=== PATIENT | female | born 1995 | race Caucasian/White ===

== ENCOUNTER → 2018-12-09 | Outpatient (CLI) | payer OTHER ==
--- NOTE | 2018-12-09 11:24 | US ---
EXAMINATION TYPE: US abdomen complete DATE OF EXAM: 12/09/2018 COMPARISON: NONE CLINICAL HISTORY: R01.9 abdominal pain; RUQ, LUQ and umbilical pain, intermittently x 3 months, nause a and vomiting especially in AM EXAM MEASUREMENTS: Liver Length: 15.3 cm Gallbladder Wall: 0.1 cm CBD: 0.4 cm Spleen: 11.6 cm Right Kidney: 11.1 x 5.8 x 4.1 cm Left Kidney: 11.2 x 5.9 x 4.6 cm Pancreas: wnl Liver: wnl Gallbladder: wnl Evidence for sonographic Meraz's sign: no CBD: wnl Spleen: wnl Right Kidney: wnl Left Kidney: wnl Upper IVC: wnl Abd Aorta: wnl There is no ascites. The liver is homogenous. The intrahepatic portion of the IVC and proximal abdominal aorta are within normal limits. There is no evidence of cholelithiasis. Common bile duct is unremarkable. The visu alized portions of the pancreas are homogenous. The spleen is unremarkable. Kidneys are symmetric a nd free of hydronephrosis, normal cortical medullary differentiation. No renal lesions are seen. IMPRESSION: No significant abnormalities evident
--- NOTE | 2018-12-09 11:26 | US ---
EXAMINATION TYPE: US pelvic complete plus Doppler DATE OF EXAM: 12/09/2018 COMPARISON: NONE CLINICAL HISTORY: 23-year-old female R01.9 abdominal pain. Intervention abdominal and pelvic pain x 3 months, nausea in AM TECHNIQUE: Transabdominal sonographic images of the pelvis were acquired. Color Doppler and spectral waveform analysis of the ovarian arteries and veins. Date of LMP: 11/08/2018 FINDINGS: EXAM MEASUREMENTS: Uterus: 8.5 x 5.7 x 3.4 cm Endometrial Stripe: 0.9 cm Right Ovary: 2.2 x 1.9 x 1.5 cm Left Ovary: 4.5 x 3.7 x 2.4 cm for a volume of 20.5 mL, upper limits of normal 1. Uterus: Anteverted 2. Endometrium: Arcuate configuration to the endometrium. Normal thickness. 3. Right Ovary: small follicles seen 4. Left Ovary: small follicles seen with largest = 1.2 x 1.0 x 0.8cm Spectral, color and waveform Doppler imaging shows good arterial and venous flow within the ovaries ; there is no evidence for ovarian torsion. 5. Bilateral Adnexa: wnl 6. Posterior cul-de-sac: small amount of free fluid is seen in cul de sac = 2.2 x 1.7 x 1.0cm IMPRESSION: 1. Prominent follicular change in the left ovary. No sonographic evidence for ovarian torsion on eith er side. 2. Incidental arcuate configuration to the uterus. 3. Small amount of cul-de-sac free fluid likely physiologic.
== END ==
LOC: RADUSWWP 10:20
PROVIDERS: ATTEND Internal Medicine
DX: R10.9 Unspecified abdominal pain (principal)
CPT/HCPCS: 76700; 76856

== ENCOUNTER → 2020-08-29 | Outpatient (CLI) | payer OTHER ==
--- NOTE | 2020-08-29 12:19 | MR ---
EXAMINATION TYPE: MR knee LT wo con DATE OF EXAM: 08/29/2020 COMPARISON: Left knee x-ray July 28, 2020 HISTORY: LT knee pain per order. Pain with locking and initial swelling after injury July 11. TECHNIQUE: Multiplanar, multisequence imaging of the left knee is performed without IV contrast. FINDINGS: MEDIAL MENISCUS: Faint oblique signal posterior horn does not definitively extend to articular surfa ce. LATERAL MENISCUS: Horizontal increased signal is present, appears to have to some vertical irregular extension to articular surface involving the anterior horn sagittal image 9 and coronal image 17. CRUCIATE LIGAMENTS: The anterior and posterior cruciate ligaments are intact and unremarkable. COLLATERAL LIGAMENTS: The medial collateral ligament and lateral collateral ligament complex are inta ct and unremarkable. EXTENSOR MECHANISM: Visualized quadriceps and patellar tendons are intact. EFFUSION: Small to tiny suprapatellar joint effusion. POPLITEAL CYST: No popliteal/berman cyst. TRICOMPARTMENT SPACES: Tricompartment joint space is maintained. No significant spurring. CARTILAGE: Tricompartment articular cartilage is preserved. BONE MARROW SIGNAL: No focal abnormal marrow signal is appreciated. OTHER: Mild edematous change in the posterior slightly lateral muscles could reflect muscle sprain i njury. IMPRESSION: 1. At least intrasubstance tear involving the anterior and posterior horn of lateral meniscus as well as central body with full-thickness tear suspected in the anterior horn. 2. Suspected intrasubstance tear posterior horn medial meniscus. 3. No ligamentous tear.
== END | disposition home or self-care (01) ==
LOC: RADMRIMAIN 11:14
PROVIDERS: ATTEND Orthopaedic Surgery
DX: S83.282A Other tear of lateral meniscus, current injury, left knee, initial encounter (principal)

== ENCOUNTER → 2021-03-30 | Outpatient (CLI) | payer OTHER ==
--- NOTE | 2021-03-30 13:30 | USB ---
Reason for exam: clinical finding. History: Family history of breast cancer in maternal grandmother at age 50. Took hormonal contraceptives for 3 years beginning at age 15. Physical Findings: Nurse Summary: 2cm nodule in the left breast at 2 o'clock (nurse ms). US Breast Limited LT Technologist: Basilia Bean Left limited breast ultrasound including focal area of concern, retroareolar and axilla demonstrates no cystic or solid lesion seen. No sonographic finding. These results were verbally communicated with the patient and result sheet given to the patient on 03/30/21. ASSESSMENT: Benign, BI-RAD 2 RECOMMENDATION: Routine screening mammogram of both breasts at age 39. Manage patient on a clinical basis.
== END | disposition home or self-care (01) ==
LOC: RADMAMWWP 11:14
PROVIDERS: ATTEND Physician Assistant
DX: N63.21 Unspecified lump in the left breast, upper outer quadrant (principal); Z80.3 Family history of malignant neoplasm of breast

== ENCOUNTER 2021-04-18 20:54 | Emergency (ER) | payer OTHER ==
[2021-04-18 21:09] VITALS: RESP 16; TEMP 98.5
[2021-04-18 22:40] LABS: AST 22 U/L (14-36); African American GFR (CKD) >90 (>60 ml/min/1.73 sqM); Albumin 4.7 g/dL (3.5-5.0); Anion Gap 9 mmol/L; Blood Urea Nitrogen 7 mg/dL (7-17); Calcium 9.4 mg/dL (8.4-10.2); Carbon Dioxide 24 mmol/L (22-30); Chloride 106 mmol/L (98-107); Glucose 96 mg/dL (74-99); Non-African American GFR(CKD) >90 (>60 ml/min/1.73 sqM); Potassium 3.9 mmol/L (3.5-5.1); Sodium 139 mmol/L (137-145); Total Bilirubin 0.3 mg/dL (0.2-1.3); Total Protein 7.2 g/dL (6.3-8.2)
[2021-04-18 22:41] LABS: ALT 14 U/L (4-34); Alkaline Phosphatase 40 U/L (38-126)
[2021-04-18 22:57] LABS: HCG,Quantitative Serum 728.8 mIU/mL
--- NOTE | 2021-04-18 23:43 | US ---
EXAMINATION TYPE: Transabdominal DATE OF EXAM: 04/18/2021 11:24 PM COMPARISON: US, This is first US for this . CLINICAL HISTORY: pain. Bleeding and cramping x 2 days. . EXAM PERFORMED: Transvaginal (TV) and Transabdominal (TA). Uterus and ovaries were not visualized T A. EXAM MEASUREMENTS: GESTATIONAL AGE / DATING Physician Established: Not yet established. Dates by LMP: (5 weeks/4 days) EDC: 12/15/2021 Dates by First Scan: This is first scan. Dates by Current Scan for: Possible gestational sac seen only, appears hypoechoic-complex in appearan ce. (5 weeks/4 days) EDC: 12/15/2021. MATERNAL ANATOMY Uterus: 7.8 x 5.7 x 5.3 cm. Retroverted. Arcuate appearance of endometrium. Right Ovary: 4.0 x 2.3 x 1.9 cm. Follicles seen. Left Ovary: 3.4 x 1.8 x 1.6 cm. Follicles seen. Post CDS / Adnexa: Appear wnl. Presence of free fluid: None seen. Presence of corpus luteal cyst: Not seen. GESTATION / SURVEY CRL: Not seen. MSD: 1.40 cm. (5 weeks/4 days) Yolk Sac (normal less than 6mm): Not seen. IUP: Possible gestational sac seen with hypoechoic-complex appearance. No definite pole seen a t this time. Date of LMP: 03/10/2021 Beta HcG (if available): 728.8 IMPRESSION: No gestational sac identified. No adnexal mass.
[2021-04-18] MEDS ORDERED: ACETAMINOPHEN TAB 500 MG TAB PO STA (23:47)
--- NOTE | 2021-04-18 23:48 | ED ---
General Adult HPI - General Chief complaint: Vaginal Bleeding Stated complaint: Poss miscarriage Time Seen by Provider: 04/18/21 21:34 Source: patient, RN notes reviewed Mode of arrival: ambulatory Limitations: no limitations - History of Present Illness Initial comments: 25-year-old female currently 6 weeks presents to the emergency room for vaginal bleeding. Patient states it started 2 or 3 days ago. States he became heavier today. States she has slight cramping. Patient denies any significant abdominal pain. Patient did see her doctor earlier today and had blood drawn but has not yet had an ultrasound.Patient has no other complaints at this time including shortness of breath, chest pain, abdominal pain, nausea or vomiting, headache, or visual changes. - Related Data Home Medications Medication Instructions Recorded Confirmed No Known Home Medications 04/12/14 10/05/16 Allergies Allergy/AdvReac Type Severity Reaction Status Date / Time No Known Allergies Allergy Verified 10/05/16 01:05 Review of Systems ROS Statement: Those systems with pertinent positive or pertinent negative responses have been documented in the HPI. ROS Other: All systems not noted in ROS Statement are negative. Past Medical History Additional Past Medical History / Comment(s): syncope History of Any Multi-Drug Resistant Organisms: None Reported Past Surgical History: No Surgical Hx Reported Past Anesthesia/Blood Transfusion Reactions: No Reported Reaction Past Psychological History: No Psychological Hx Reported Smoking Status: Never smoker Past Alcohol Use History: Occasional Past Drug Use History: None Reported - Past Family History Mother Family Medical History: No Reported History General Exam Limitations: no limitations General appearance: alert, in no apparent distress Head exam: Present: atraumatic, normocephalic, normal inspection Eye exam: Present: normal appearance, PERRL, EOMI. Absent: scleral icterus, conjunctival injection, periorbital swelling ENT exam: Present: normal exam, mucous membranes moist Neck exam: Present: normal inspection. Absent: tenderness, meningismus, lymphadenopathy Respiratory exam: Present: normal lung sounds bilaterally. Absent: respiratory distress, wheezes, rales, rhonchi, stridor Cardiovascular Exam: Present: regular rate, normal rhythm, normal heart sounds. Absent: systolic murmur, diastolic murmur, rubs, gallop, clicks GI/Abdominal exam: Present: soft, normal bowel sounds. Absent: distended, tenderness, guarding, rebound, rigid External exam: Present: normal external exam. Absent: erythema, swelling, lesions, lacerations Speculum exam: Present: vaginal bleeding (Mild vaginal bleeding noted). Absent: normal speculum exam, erythema, vaginal discharge, cervical discharge, foreign body, tissue, laceration By manual exam: Present: normal by manual exam. Absent: cervical motion tenderness, adnexal tenderness, adnexal mass Course Vital Signs 04/18/21 21:06 Temperature 98.5 F Pulse Rate 75 Respiratory 16 Rate Blood Pressure 122/75 O2 Sat by Pulse 100 Oximetry Medical Decision Making - Medical Decision Making vitals are stable. CBC CMP unremarkable. HCG 728. Urinalysis shows 182 red blood cells however this is related to vaginal bleeding. A positive blood type. Obstetric ultrasound shows a possible gestational sac with no definite pole. HCG is 728. 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 Discussed return parameters including worsening vaginal bleeding or abdominal pain. Discussed following up with her doctor as soon as possible. - Lab Data Result diagrams: 04/18/21 22:18 04/18/21 22:18 Lab Results 04/18/21 04/18/21 04/18/21 Range/Units 22:18 22:18 22:18 WBC 6.0 (3.8-10.6) k/uL RBC 4.18 (3.80-5.40) m/uL Hgb 12.9 (11.4-16.0) gm/dL Hct 38.1 (34.0-46.0) % MCV 91.0 (80.0-100.0) fL MCH 30.9 (25.0-35.0) pg MCHC 33.9 (31.0-37.0) g/dL RDW 13.2 (11.5-15.5) % Plt Count 203 (150-450) k/uL MPV 8.3 Sodium 139 (137-145) mmol/L Potassium 3.9 (3.5-5.1) mmol/L Chloride 106 (98-107) mmol/L Carbon Dioxide 24 (22-30) mmol/L Anion Gap 9 mmol/L BUN 7 (7-17) mg/dL Creatinine 0.50 L (0.52-1.04) mg/dL Est GFR (CKD-EPI)AfAm >90 (>60 ml/min/1.73 sqM) Est GFR (CKD-EPI)NonAf >90 (>60 ml/min/1.73 sqM) Glucose 96 (74-99) mg/dL Calcium 9.4 (8.4-10.2) mg/dL Total Bilirubin 0.3 (0.2-1.3) mg/dL AST 22 (14-36) U/L ALT 14 (4-34) U/L Alkaline Phosphatase 40 (38-126) U/L Total Protein 7.2 (6.3-8.2) g/dL Albumin 4.7 (3.5-5.0) g/dL HCG, Quant 728.8 mIU/mL Urine Color Yellow Urine Appearance Clear (Clear) Urine pH 6.0 (5.0-8.0) Ur Specific [place] 1.011 (1.001-1.035) Urine Protein Negative (Negative) Urine Glucose (UA) Negative (Negative) Urine Ketones Negative (Negative) Urine Blood Large H (Negative) Urine Nitrite Negative (Negative) Urine Bilirubin Negative (Negative) Urine Urobilinogen <2.0 (<2.0) mg/dL Ur Leukocyte Esterase Small H (Negative) Urine RBC >182 H (0-5) /hpf Urine WBC 9 H (0-5) /hpf Ur Squamous Epith Cells <1 (0-4) /hpf Urine Bacteria Rare H (None) /hpf Blood Type Blood Type Recheck Bld Type Recheck Status 04/18/21 Range/Units 22:18 WBC (3.8-10.6) k/uL RBC (3.80-5.40) m/uL Hgb (11.4-16.0) gm/dL Hct (34.0-46.0) % MCV (80.0-100.0) fL MCH (25.0-35.0) pg MCHC (31.0-37.0) g/dL RDW (11.5-15.5) % Plt Count (150-450) k/uL MPV Sodium (137-145) mmol/L Potassium (3.5-5.1) mmol/L Chloride (98-107) mmol/L Carbon Dioxide (22-30) mmol/L Anion Gap mmol/L BUN (7-17) mg/dL Creatinine (0.52-1.04) mg/dL Est GFR (CKD-EPI)AfAm (>60 ml/min/1.73 sqM) Est GFR (CKD-EPI)NonAf (>60 ml/min/1.73 sqM) Glucose (74-99) mg/dL Calcium (8.4-10.2) mg/dL Total Bilirubin (0.2-1.3) mg/dL AST (14-36) U/L ALT (4-34) U/L Alkaline Phosphatase (38-126) U/L Total Protein (6.3-8.2) g/dL Albumin (3.5-5.0) g/dL HCG, Quant mIU/mL Urine Color Urine Appearance (Clear) Urine pH (5.0-8.0) Ur Specific [place] (1.001-1.035) Urine Protein (Negative) Urine Glucose (UA) (Negative) Urine Ketones (Negative) Urine Blood (Negative) Urine Nitrite (Negative) Urine Bilirubin (Negative) Urine Urobilinogen (<2.0) mg/dL Ur Leukocyte Esterase (Negative) Urine RBC (0-5) /hpf Urine WBC (0-5) /hpf Ur Squamous Epith Cells (0-4) /hpf Urine Bacteria (None) /hpf Blood Type A Positive Blood Type Recheck No Previous Record Bld Type Recheck Status [facility] ONLY Disposition Clinical Impression: Vaginal bleeding during , Threatened miscarriage Disposition: HOME SELF-CARE Condition: Good Instructions (If sedation given, give patient instructions): Threatened Miscarriage (ED) Additional Instructions: Please repeat HCG in 2 days. 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 Return to the emergency room for any worsening symptoms. Is patient prescribed a controlled substance at d/c from ED?: No Referrals: Carolyn Emmanuel MD [STAFF PHYSICIAN] - 1-2 days Time of Disposition: 00:44
[2021-04-19 00:13] LABS: HCT 38.1 % (34.0-46.0); HGB 12.9 gm/dL (11.4-16.0); MCH 30.9 pg (25.0-35.0); MCHC 33.9 g/dL (31.0-37.0); Mean Platelet Volume 8.3; Platelet Count 203 k/uL (150-450); RBC 4.18 m/uL (3.80-5.40); RDW 13.2 % (11.5-15.5)
[2021-04-19 00:18] LABS: Appearance,Urine Clear (Clear); Bacteria,Urine Rare /hpf; Bilirubin,Urine Negative (Negative); Blood,Urine Large (Negative); Color,Urine Yellow; Glucose,Urine (UA) Negative (Negative); Ketones,Urine Negative (Negative); Leukocyte Esterase,Urine Small (Negative); Nitrite,Urine Negative (Negative); Protein,Urine Negative (Negative); RBC,Urine >182 /hpf (0-5); Specific Gravity,Urine 1.011 (1.001-1.035); Squamous Epithelial Cell,Urine <1 /hpf (0-4); Urobilinogen,Urine <2.0 mg/dL (<2.0); WBC,Urine 9 /hpf (0-5)
[2021-04-19 00:55] VITALS: BP 118/68; PULSE 74
[2021-04-19 00:56] LABS: Band Neutrophils % 1 %; Lymphocytes # (M) 2.52 k/uL (1.0-4.8); Monocytes # (M) 0.48 k/uL (0-1.0); Neutrophils % (M) 49 %; Nucleated Red Blood Cells 0 /100 WBC (0-0); Total Cells Counted 100
[2021-04-19 00:57] LABS: Anisocytosis (M) Present
== END 2021-04-19 00:59 | disposition home or self-care (01) ==
LOC: EC 20:54
DX: O20.0 Threatened abortion (principal); Z3A.01 Less than 8 weeks gestation of pregnancy; Z72.89 Other problems related to lifestyle
CPT/HCPCS: 36415; 76801; 76817; 80053; 81001; 84702; 85025; 86900; 86901; 99284

== ENCOUNTER 2022-11-22 09:39 | Emergency (ER) | payer OTHER ==
[2022-11-22 09:48] VITALS: TEMP 98
[2022-11-22] MEDS ORDERED: ONDANSETRON 4 MG/2 ML VIAL IVP STA (10:13)
[2022-11-22] MEDS ORDERED: diphenhydrAMINE 50 MG/ML 1 ML VIAL IVP STA (10:14)
[2022-11-22] MEDS ORDERED: PYRIDOXINE 100 MG/ML 1 ML VIAL IVP SCH (10:15)
--- NOTE | 2022-11-22 10:48 | ED ---
Nausea/Vomiting/Diarrhea HPI - General Chief complaint: Nausea/Vomiting/Diarrhea Stated complaint: Dehydration,Early ,Sent by OB Time Seen by Provider: 11/22/22 10:00 Source: patient, family, RN notes reviewed Mode of arrival: ambulatory Limitations: no limitations - History of Present Illness Initial comments: This is a 27-year-old female who presents to the emergency department for nausea and vomiting. Patient is approximately 7 weeks and . States that starting early last week, she has had ongoing nausea and vomiting. She has tried Diclegis and montserrat with no relief. She is concerned that she is getting very dehydrated and has decreased urine output. She is a patient at [facility] [employer], and has her first visit, which is an intake phone call, next week. She did call the office today and was instructed to come to the emergency department for further evaluation and IV fluids. Denies any abdominal pain, vaginal b leeding, or discharge. Denies any fevers, chills, sore throat, cough, dyspnea, chest pain, palpitations, abdominal pain, diarrhea, back pain, or headaches. MD complaint: nausea, vomiting Associated Abdominal Pain: No - Related Data Previous Rx's Medication Instructions Recorded Cephalexin [Keflex] 500 mg PO Q8HR 5 Days #15 cap 11/22/22 Metoclopramide [Reglan] 10 mg PO Q6H PRN #30 tab 11/22/22 Allergies Allergy/AdvReac Type Severity Reaction Status Date / Time No Known Allergies Allergy Verified 11/22/22 09:48 Review of Systems ROS Statement: Those systems with pertinent positive or pertinent negative responses have been documented in the HPI. ROS Other: All systems not noted in ROS Statement are negative. Past Medical History Additional Past Medical History / Comment(s): syncope History of Any Multi-Drug Resistant Organisms: None Reported Past Surgical History: No Surgical Hx Reported Past Anesthesia/Blood Transfusion Reactions: No Reported Reaction Past Psychological History: Anxiety Smoking Status: Never smoker Past Alcohol Use History: Occasional Past Drug Use History: Marijuana - Past Family History Mother Family Medical History: No Reported History General Exam Limitations: no limitations General appearance: alert, other (fatigued) Head exam: Present: atraumatic, normocephalic, normal inspection Respiratory exam: Present: normal lung sounds bilaterally. Absent: respiratory distress, wheezes, rales, rhonchi, stridor Cardiovascular Exam: Present: regular rate, normal rhythm, normal heart sounds. Absent: systolic murmur, diastolic murmur, rubs, gallop, clicks GI/Abdominal exam: Present: hypoactive bowel sounds Neurological exam: Present: alert, oriented X3, CN II-XII intact Psychiatric exam: Present: normal affect, normal mood Skin exam: Present: warm, dry, intact, normal color. Absent: rash Course Vital Signs 11/22/22 11/22/22 09:45 13:55 Temperature 98 F Pulse Rate 78 61 Respiratory 18 16 Rate Blood Pressure 118/81 112/63 O2 Sat by Pulse 100 100 Oximetry Medical Decision Making - Medical Decision Making This is a 27-year-old female who presents to the emergency department for nausea and vomiting in . Was pt. sent in by a medical professional or institution? @ -No Did you speak to anyone other than the patient for history? @ -No Did you review nursing and triage notes? @ -Yes, and I agree, it is accurate with regards to the patient's symptoms. Were old charts reviewed? @ -No Differential Diagnosis? @ -Differential Nausea and Vomiting in Hyperemesis gravidarum, morning sickness, gastorenteritis, GERD, cholecystitis, this is not meant to be an all-inclusive list. What testing was considered but not performed? (CT, X-rays, U/S, labs)? Why? @ -None What meds were considered but not given? Why? @ -None Did you discuss the management of the patient with other professionals? @ -No Did you reconcile home meds? @ -No Was smoking cessation discussed for >3mins.? @ -No Was critical care preformed (if so, how long)? @ -No Were there social determinants of health that impacted care today? How? (Homelessness, low income, unemployed, alcoholism, drug addiction, transportation, low edu. Level, literacy, decrease access to med. care, long-term, rehab)? @ -No Was there de-escalation of care discussed even if they declined? (Discuss DNR or withdrawal of care, Hospice)? @ -No What co-morbidities impacted this encounter? (DM, HTN, Smoking, COPD, CAD, Cancer, CVA, Hep., AIDS, mental health diagnosis, sleep apnea, morbid obesity)? @ - Was patient admitted / discharged? @ -Discharged. Lab work obtained and found to be nonactionable. UA consistent with possible UTI vs asymptomatic bacteriuria. She was given a dose of ceftriaxone in the emergency department. 1 L bolus of IV fluids, vitamin B6, Benadryl, and Zofran were provided initially. She noted that she felt better, but still somewhat nauseous. She was subsequently given a dose of Reglan. States that the Reglan improved her symptoms much more than the Zofran. She was able to drink water without any difficulty, which she was unable to do when she first got here. She was then given a tablet of Reglan, which she was able to keep down. States that she feels overall stable for discharge home. When discussing management for the nausea at home, we discussed that Reglan is a category B medication in , meaning that more testing is indicated to determine how safe this may or may not be in and it has not been in any well-controlled studies to determine this. Patient expresses understanding and wishes to proceed with rx for Reglan. Prescription for Keflex and Reglan provided with dosing instructions reviewed. Advised that she can take the vitamin B6 and Unisom with the Reglan if needed. She is otherwise instructed to remain well-hydrated and slowly advance her diet as tolerated. Instructed her to contact her dental claims processor regarding her ongoing symptoms to see if a sooner follow-up appointment as needed. Undiagnosed new problem with uncertain prognosis? @ -None Drug Therapy requiring intensive monitoring for toxicity (Heparin, Nitro, In sulin, Cardizem)? @ -None Were any procedures done? @ -None Diagnosis/symptom? @ -Nausea and vomiting in Acute, or Chronic, or Acute on Chronic? @ -Acute Uncomplicated (without systemic symptoms) or Complicated (systemic symptoms)? @ -Complicated Side effects of treatment? @ -None Exacerbation, Progression, or Severe Exacerbation] @ -Not applicable Poses a threat to life or bodily function? @ -Yes, the ongoing vomiting is making it difficult to function. Diagnosis/symptom? @ -UTI Acute, or Chronic, or Acute on Chronic? @ -Acute Uncomplicated (without systemic symptoms) or Complicated (systemic symptoms)? @ -Uncomplicated Side effects of treatment? @ -None Exacerbation, Progression, or Severe Exacerbation] @ -Not applicable Poses a threat to life or bodily function? @ -No Return precautions reviewed in depth, the patient is instructed to return to the emergency department with any new, worsening, or concerning symptoms. Patient verbalized understanding. This case was discussed in detail with the attending ED physician, Dr. Clay. Presentation, findings, and treatment plan discussed in detail as well. - Lab Data Result diagrams: 11/22/22 10:35 11/22/22 10:35 Lab Results 11/22/22 11/22/22 11/22/22 Range/Units 10:35 10:35 10:35 WBC 7.1 (3.8-10.6) k/uL RBC 4.34 (3.80-5.40) m/uL Hgb 13.5 (11.4-16.0) gm/dL Hct 38.3 (34.0-46.0) % MCV 88.4 (80.0-100.0) fL MCH 31.2 (25.0-35.0) pg MCHC 35.3 (31.0-37.0) g/dL RDW 12.4 (11.5-15.5) % Plt Count 204 (150-450) k/uL MPV 8.5 Neutrophils % (Manual) 65 % Lymphocytes % (Manual) 27 % Monocytes % (Manual) 7 % Eosinophils % (Manual) 1 % Neutrophils # (Manual) 4.62 (1.3-7.7) k/uL Lymphocytes # (Manual) 1.92 (1.0-4.8) k/uL Monocytes # (Manual) 0.50 (0-1.0) k/uL Eosinophils # (Manual) 0.07 (0-0.7) k/uL Nucleated RBCs 0 (0-0) /100 WBC Manual Slide Review Performed Sodium 136 L (137-145) mmol/L Potassium 3.8 (3.5-5.1) mmol/L Chloride 105 (98-107) mmol/L Carbon Dioxide 22 (22-30) mmol/L Anion Gap 9 mmol/L BUN 8 (7-17) mg/dL Creatinine 0.48 L (0.52-1.04) mg/dL Est GFR (CKD-EPI)AfAm >90 (>60 ml/min/1.73 sqM) Est GFR (CKD-EPI)NonAf >90 (>60 ml/min/1.73 sqM) Glucose 96 (74-99) mg/dL Calcium 9.2 (8.4-10.2) mg/dL Total Bilirubin 0.6 (0.2-1.3) mg/dL AST 23 (14-36) U/L ALT 21 (4-34) U/L Alkaline Phosphatase 46 (38-126) U/L Total Protein 7.5 (6.3-8.2) g/dL Albumin 4.7 (3.5-5.0) g/dL HCG, Quant 16583.1 mIU/mL Urine Color Urine Appearance (Clear) Urine pH (5.0-8.0) Ur Specific Chinle (1.001-1.035) Urine Protein (Negative) Urine Glucose (UA) (Negative) Urine Ketones (Negative) Urine Blood (Negative) Urine Nitrite (Negative) Urine Bilirubin (Negative) Urine Urobilinogen (<2.0) mg/dL Ur Leukocyte Esterase (Negative) Urine RBC (0-5) /hpf Urine WBC (0-5) /hpf Ur Squamous Epith Cells (0-4) /hpf Urine Bacteria (None) /hpf Hyaline Casts (0-2) /lpf Urine Mucus (None) /hpf Influenza Type A (PCR) Not Detected (Not Detectd) Influenza Type B (PCR) Not Detected (Not Detectd) RSV (PCR) Not Detected (Not Detectd) SARS-CoV-2 (PCR) Not Detected (Not Detectd) 11/22/22 Range/Units 12:14 WBC (3.8-10.6) k/uL RBC (3.80-5.40) m/uL Hgb (11.4-16.0) gm/dL Hct (34.0-46.0) % MCV (80.0-100.0) fL MCH (25.0-35.0) pg MCHC (31.0-37.0) g/dL RDW (11.5-15.5) % Plt Count (150-450) k/uL MPV Neutrophils % (Manual) % Lymphocytes % (Manual) % Monocytes % (Manual) % Eosinophils % (Manual) % Neutrophils # (Manual) (1.3-7.7) k/uL Lymphocytes # (Manual) (1.0-4.8) k/uL Monocytes # (Manual) (0-1.0) k/uL Eosinophils # (Manual) (0-0.7) k/uL Nucleated RBCs (0-0) /100 WBC Manual Slide Review Sodium (137-145) mmol/L Potassium (3.5-5.1) mmol/L Chloride (98-107) mmol/L Carbon Dioxide (22-30) mmol/L Anion Gap mmol/L BUN (7-17) mg/dL Creatinine (0.52-1.04) mg/dL Est GFR (CKD-EPI)AfAm (>60 ml/min/1.73 sqM) Est GFR (CKD-EPI)NonAf (>60 ml/min/1.73 sqM) Glucose (74-99) mg/dL Calcium (8.4-10.2) mg/dL Total Bilirubin (0.2-1.3) mg/dL AST (14-36) U/L ALT (4-34) U/L Alkaline Phosphatase (38-126) U/L Total Protein (6.3-8.2) g/dL Albumin (3.5-5.0) g/dL HCG, Quant mIU/mL Urine Color Yellow Urine Appearance Clear (Clear) Urine pH 7.0 (5.0-8.0) Ur Specific Chinle 1.019 (1.001-1.035) Urine Protein Trace H (Negative) Urine Glucose (UA) Negative (Negative) Urine Ketones 4+ H (Negative) Urine Blood Negative (Negative) Urine Nitrite Negative (Negative) Urine Bilirubin Negative (Negative) Urine Urobilinogen <2.0 (<2.0) mg/dL Ur Leukocyte Esterase Large H (Negative) Urine RBC <1 (0-5) /hpf Urine WBC 3 (0-5) /hpf Ur Squamous Epith Cells 1 (0-4) /hpf Urine Bacteria Occasional H (None) /hpf Hyaline Casts 1 (0-2) /lpf Urine Mucus Occasional H (None) /hpf Influenza Type A (PCR) (Not Detectd) Influenza Type B (PCR) (Not Detectd) RSV (PCR) (Not Detectd) SARS-CoV-2 (PCR) (Not Detectd) Disposition Clinical Impression: Nausea and vomiting during , UTI (urinary tract infection) Disposition: HOME SELF-CARE Instructions (If sedation given, give patient instructions): Nausea and Vomiting in (ED), Hyperemesis Gravidarum (ED), Urinary Tract Infection in (ED) Additional Instructions: Return to the emergency department with any new, worsening, or concerning symptoms. You can take the nausea medication up to every 6 hours as needed. You can also take the vitamin B6 and Unisom in conjunction with this if you find it beneficial. Make sure that you remain well-hydrated and slowly advance your diet as tolerated. Take the antibiotic as prescribed for 5 days, with your first dose beginning tomorrow since you already received an antibiotic here today. Follow up with your dental claims processor as scheduled, sooner if needed. Prescriptions: Cephalexin [Keflex] 500 mg PO Q8HR 5 Days #15 cap Metoclopramide [Reglan] 10 mg PO Q6H PRN #30 tab PRN Reason: Nausea And Vomiting Is patient prescribed a controlled substance at d/c from ED?: No Referrals: Fadi Farris MD [Primary Care Provider] - 1-2 days
[2022-11-22 11:01] LABS: ALT 21 U/L (4-34); AST 23 U/L (14-36); African American GFR (CKD) >90 (>60 ml/min/1.73 sqM); Albumin 4.7 g/dL (3.5-5.0); Alkaline Phosphatase 46 U/L (38-126); Anion Gap 9 mmol/L; Blood Urea Nitrogen 8 mg/dL (7-17); Calcium 9.2 mg/dL (8.4-10.2); Carbon Dioxide 22 mmol/L (22-30); Chloride 105 mmol/L (98-107); Glucose 96 mg/dL (74-99); Non-African American GFR(CKD) >90 (>60 ml/min/1.73 sqM); Potassium 3.8 mmol/L (3.5-5.1); Sodium 136 mmol/L (137-145); Total Bilirubin 0.6 mg/dL (0.2-1.3); Total Protein 7.5 g/dL (6.3-8.2)
[2022-11-22 11:05] LABS: HCT 38.3 % (34.0-46.0); HGB 13.5 gm/dL (11.4-16.0); MCH 31.2 pg (25.0-35.0); MCHC 35.3 g/dL (31.0-37.0); MCV 88.4 fL (80.0-100.0); Mean Platelet Volume 8.5; Platelet Count 204 k/uL (150-450); RBC 4.34 m/uL (3.80-5.40); RDW 12.4 % (11.5-15.5); WBC 7.1 k/uL (3.8-10.6)
[2022-11-22] MEDS ORDERED: METOCLOPRAMIDE 5 MG/ML 2 ML VIAL IVP STA (11:40)
[2022-11-22 12:05] LABS: Eosinophils # (M) 0.07 k/uL (0-0.7); Lymphocytes # (M) 1.92 k/uL (1.0-4.8); Neutrophils # (M) 4.62 k/uL (1.3-7.7); Neutrophils % (M) 65 %; Nucleated Red Blood Cells 0 /100 WBC (0-0); Total Cells Counted 100
[2022-11-22 12:21] LABS: HCG,Quantitative Serum 86855.1 mIU/mL
[2022-11-22 12:36] LABS: Appearance,Urine Clear (Clear); Bacteria,Urine Occasional /hpf; Bilirubin,Urine Negative (Negative); Blood,Urine Negative (Negative); Color,Urine Yellow; Glucose,Urine (UA) Negative (Negative); Hyaline Casts,Urine 1 /lpf (0-2); Ketones,Urine 4+ (Negative); Leukocyte Esterase,Urine Large (Negative); Mucus,Urine Occasional /hpf; Nitrite,Urine Negative (Negative); Protein,Urine Trace (Negative); RBC,Urine <1 /hpf (0-5); Specific Gravity,Urine 1.019 (1.001-1.035); Squamous Epithelial Cell,Urine 1 /hpf (0-4); Urobilinogen,Urine <2.0 mg/dL (<2.0); WBC,Urine 3 /hpf (0-5)
[2022-11-22] MEDS ORDERED: cefTRIAXone IN SWFI 1,000 MG/10 ML SYRINGE IVP STA (12:54)
[2022-11-22] MEDS ORDERED: METOCLOPRAMIDE 5 MG TAB PO STA (12:54)
[2022-11-22 13:56] VITALS: BP 112/63; PULSE 61; RESP 16
== END 2022-11-22 13:56 | disposition home or self-care (01) ==
LOC: EC 09:39
DX: O23.41 Unspecified infection of urinary tract in pregnancy, first trimester (principal); N39.0 Urinary tract infection, site not specified; O21.9 Vomiting of pregnancy, unspecified; F12.90 Cannabis use, unspecified, uncomplicated; Z20.822 Contact with and (suspected) exposure to COVID-19; Z3A.01 Less than 8 weeks gestation of pregnancy
CPT/HCPCS: 36415; 80053; 85025; 81001; 84702; 87636; 99284; 96374; 96375; J1200; J3415; J2765; J2405; J0696

== ENCOUNTER 2023-07-02 06:00 | Inpatient (IN) | payer OTHER ==
[2023-07-02] MEDS ORDERED: LIDOCAINE 0.5% (PF) 5 MG/ML (50 ML SDV) SQ PRN (06:38)
[2023-07-02] MEDS ORDERED: TERBUTALINE 1 MG/ML VIAL SQ PRN (06:38)
[2023-07-02] MEDS ORDERED: METHYLERGONOVINE 0.2 MG/ML 1 ML AMP IM PRN (06:38)
[2023-07-02] MEDS ORDERED: OXYTOCIN 10 UNIT/ML 1 ML VIAL IM PRN (06:38)
[2023-07-02] MEDS ORDERED: TRANEXAMIC 1,000 MG/100ML-NACL 1,000 MG in EMPTY BAG 1 BAG IV PRN (06:38)
[2023-07-02] MEDS ORDERED: CARBOPROST TROMETHAMINE 250 MCG/ML 1 ML AMP IM PRN (06:38)
[2023-07-02] MEDS ORDERED: miSOPROStoL 200 MCG TAB PO PRN (06:38)
[2023-07-02] MEDS ORDERED: OXYTOCIN 30 UNITS/500 ML NS 30 UNIT in SALINE 1 500ML.BAG IV SCH (06:45)
[2023-07-02 07:17] LABS: HCT 30.9 % (34.0-46.0); HGB 10.5 gm/dL (11.4-16.0); MCHC 33.9 g/dL (31.0-37.0); MCV 88.4 fL (80.0-100.0); Mean Platelet Volume 9.3; Platelet Count 185 k/uL (150-450); RDW 13.6 % (11.5-15.5); WBC 7.8 k/uL (3.8-10.6)
[2023-07-02 09:04] LABS: Eosinophils # (M) 0.16 k/uL (0-0.7); Lymphocytes # (M) 1.95 k/uL (1.0-4.8); Monocytes # (M) 0.55 k/uL (0-1.0); Myelocytes # (M) 0.08 k/uL (0); Myelocytes % 1 %; Neutrophils # (M) 5.15 k/uL (1.3-7.7); Neutrophils % (M) 66 %; Nucleated Red Blood Cells 0 /100 WBC (0-0); Total Cells Counted 200
[2023-07-02 09:05] LABS: RBC Morphology Normal
[2023-07-02] MEDS ORDERED: NALBUPHINE 10 MG/ML (10 ML MDV) IV PRN (09:17)
--- NOTE | 2023-07-02 09:17 | P.HPOB ---
History of Present Illness H&P Date: 07/02/23 Chief Complaint: elective induction of labor Ms. Walters is a 28 year old at 39 weeks and 5 days with EDC of 07/04/2023 (by LMP consistent with 9 week US) who presents to labor and delivery for elective induction of labor. Her has been complicated by anxiety and depression, for which she has been stable on 10 mg of Lexapro daily. The patient also has mild intermittent asthma which has been well controlled throughout the . The fetus measured in the 65%ile at 32 weeks. Obstetric history: 1 full-term at 38 weeks, no complications Maternal work-up: blood type A positive, antibody negative, rubella immune, VDRL non-reactive, HBsAg negative, HIV negative, gonorrhea negative, chlamydia negative, 1 hour GTT within normal limits, GBS negative. s/p TDap administration on 06/07/2023. Past Medical History Past Medical History: Asthma Additional Past Medical History / Comment(s): syncope History of Any Multi-Drug Resistant Organisms: None Reported Past Surgical History: No Surgical Hx Reported Past Anesthesia/Blood Transfusion Reactions: No Reported Reaction Past Psychological History: Anxiety, Depression Smoking Status: Never smoker Past Alcohol Use History: Occasional Past Drug Use History: Marijuana - Past Family History Mother Family Medical History: Diabetes Mellitus Medications and Allergies Home Medications Medication Instructions Recorded Confirmed Type Escitalopram [Lexapro] 20 mg PO DAILY 07/02/23 07/02/23 History Allergies Allergy/AdvReac Type Severity Reaction Status Date / Time No Known Allergies Allergy Verified 07/02/23 06:34 Exam Intake and Output 07/01/23 07/02/23 07/02/23 22:59 06:59 14:59 Other: Weight 86.183 kg Focused physical exam is performed. This is a healthy-appearing in no apparent distress. Breathing is non-labored. Abdomen is gravid, non-tender. Cervical exam is 2.5 cm/50% effaced/-3 station. AROM is undertaken revealing clear fluid. Extremities are non-tender and non-edematous. heart tones are category 1 on Pitocin, contractions are irregular. Results Result Diagrams: 07/02/23 06:36 Abnormal Lab Results - Last 24 Hours (Table) 07/02/23 Range/Units 06:36 RBC 3.50 L (3.80-5.40) m/uL Hgb 10.5 L (11.4-16.0) gm/dL Hct 30.9 L (34.0-46.0) % Myelocytes # (Manual) 0.08 H (0) k/uL Assessment and Plan Assessment: 28 year old at 39 weeks and 5 days presenting for elective induction of labor Plan: Admit, NPO, mIVF, oxytocin per protol. IV nubain prn pain. Continious EFM and tocometer. Close monitoring of patient. Time with Patient: Less than 30 (10 minutes)
[2023-07-02] MEDS ORDERED: SODIUM CHLORIDE 0.9% 250 ML BAG ONE (13:39)
[2023-07-02] MEDS ORDERED: ROPIVACAINE 5 MG/ML 30 ML VIAL ONE (13:39)
[2023-07-02] MEDS ORDERED: fentaNYL (PF) 50 MCG/ML 5 ML AMP ONE (13:39)
[2023-07-02] MEDS ORDERED: SIMETHICONE 80 MG CHEWABLE PO PRN (16:25)
[2023-07-02] MEDS ORDERED: HYDROCORTISONE 2.5% RECTAL CREAM 30 GM TUBE RECTAL PRN (16:25)
[2023-07-02] MEDS ORDERED: ZOLPIDEM 5 MG TAB PO PRN (16:25)
[2023-07-02] MEDS ORDERED: diphenhydrAMINE 50 MG CAP PO PRN (16:25)
[2023-07-02] MEDS ORDERED: BENZOCAINE/MENTHOL SPRAY 1 GM/SPRAY AEROSOL TOPICAL PRN (16:25)
[2023-07-02] MEDS ORDERED: diphenhydrAMINE 50 MG/ML 1 ML VIAL IVP PRN ×2 (16:25)
[2023-07-02] MEDS ORDERED: diphenhydrAMINE 25 MG CAP PO PRN (16:25)
[2023-07-02] MEDS ORDERED: LANOLIN CREAM 5 GM TUBE TOPICAL PRN (16:25)
--- NOTE | 2023-07-02 16:25 | P.PROBDLV ---
Vaginal Delivery Note - . Vaginal Delivery Note: DATE OF SERVICE: 07/02/2023 PROCEDURE: Normal Vaginal Delivery ATTENDING: Dr. Kailey Lai MD ESTIMATED BLOOD LOSS: 500 mL FINDINGS: VMI, Apgars 8/9. Weight 8 pounds and 1 ounce (3675 grams) PROCEDURE: Ms. Walters is a 28 year old at 39 weeks and 5 days presenting to labor and delivery for elective induction of labor. The has been uncomplicated. For further details, please review the admitting H&P. The patient was 2-3 centimeters at the time of admission. Pitocin per protocol was started and AROM was undertaken revealing clear amniotic fluid at 844. The patient received epidural anesthesia per her request. The patient was completely dilated at 1538. The patient pushed effectively and the head delivered without difficulty over an intact perineum followed by the shoulders and body. A viable male infant was delivered at 1602. The was placed on the maternal abdomen and bulb suctioned. Cord was clamped and cut after a 30-second delay. The infant was handed off to the pediatric team. Placenta was delivered whole with gentle cord traction at 1604. Oxytocin was started to facilitate uterine tone. Brisk bleeding was noted after initial bimanual massage and the oxytocin was run wide open at the bolus rate. Brisk bleeding was still noted at this time, so 0.2 of IM Methergine was given. Uterine fundus was found to be firm and below the umbilicus upon fundal massage. Bleeding was now noted to be minimal. Thorough examination of the cervix, vagina, periurethral area, and perineum revealed a small first degree laceration. The perineum was infiltrated with lidocaine and the first degree laceration was repaired with 3-0 Vicryl in a running fashion. The patient is stable and allowed to begin the bonding process. Patient stable .
[2023-07-02] MEDS: LACTATED RINGERS 1,000 ML IV SCH ×2 (18:48→22:59)
[2023-07-02 20:35] VITALS: RESP 16
[2023-07-02] MEDS: SENNOSIDES-DOCUSATE SODIUM 1 EACH TAB PO SCH (22:59)
[2023-07-02] MEDS: IBUPROFEN 600 MG TAB PO PRN (23:58)
[2023-07-03] MEDS: ACETAMINOPHEN TAB 325 MG TAB PO PRN ×2 (04:12→10:24)
[2023-07-03 07:36] LABS: HCT 29.4 % (34.0-46.0); HGB 9.8 gm/dL (11.4-16.0); MCH 29.7 pg (25.0-35.0); MCHC 33.2 g/dL (31.0-37.0); MCV 89.4 fL (80.0-100.0); Mean Platelet Volume 9.9; Platelet Count 183 k/uL (150-450); RBC 3.29 m/uL (3.80-5.40); RDW 13.7 % (11.5-15.5); WBC 8.6 k/uL (3.8-10.6)
[2023-07-03 07:56] VITALS: BP 112/73; PULSE 73; TEMP 97.9
[2023-07-03] MEDS: SENNOSIDES-DOCUSATE SODIUM 1 EACH TAB PO SCH (08:01)
[2023-07-03] MEDS: IBUPROFEN 600 MG TAB PO PRN (08:01)
--- NOTE | 2023-07-03 08:47 | P.DS ---
Providers Date of admission: 07/02/23 06:16 Expected date of discharge: 07/03/23 Attending physician: Kailey Lai MD Primary care physician: Stated None Hospital Course: This is a 28 year old now PPD#1 s/p normal vaginal delivery after elective induction of labor. She is doing well this morning and desires discharge home. She is eating and drinking without nausea, ambulating without difficulty, and voiding normally. Lochia is light. She denies fevers, chills, chest pain, shortness of breath, pain/swelling in legs. She is bottle-feeding her baby boy without difficulty. Baby boy is at the bedside, doing well, s/p circumcision. I reviewed restrictions with the patient including pelvic rest for 6 weeks. She is encouraged to call the office for any fevers, chills, heavy bleeding, foul-smelling discharge, breast complaints, or other concerns. She will follow up in the office with me in 6 weeks. All questions answered. Assessment: 28 year old now PPD#1 s/p normal vaginal delivery Patient Condition at Discharge: Good Plan - Discharge Summary New Discharge Prescriptions: No Action Escitalopram [Lexapro] 20 mg PO DAILY Discharge Medication List Escitalopram [Lexapro] 20 mg PO DAILY 07/02/23 [History] Follow up Appointment(s)/Referral(s): Kailey Lai MD [STAFF PHYSICIAN] - 6 Weeks Activity/Diet/Wound Care/Special Instructions: Pelvic rest for 6 weeks. Otherwise, activity as tolerated. Discharge Disposition: HOME SELF-CARE
[2023-07-03 09:53] LABS: Basophils # (M) 0.09 k/uL (0-0.2); Eosinophils # (M) 0.09 k/uL (0-0.7); Lymphocytes # (M) 1.89 k/uL (1.0-4.8); Monocytes # (M) 0.43 k/uL (0-1.0); Neutrophils # (M) 6.11 k/uL (1.3-7.7); Neutrophils % (M) 71 %; Nucleated Red Blood Cells 0 /100 WBC (0-0); Total Cells Counted 100
== END 2023-07-03 18:00 | disposition home or self-care (01) | DRG 807 ==
LOC: 4FBP 06:16
PROVIDERS: ADMIT Obstetrics & Gynecology; ATTEND Obstetrics & Gynecology
PROC: 10E0XZZ Delivery of Products of Conception, External Approach (ICD-10-PCS; principal; 2023-07-02)
PROC: 0HQ9XZZ Repair Perineum Skin, External Approach (ICD-10-PCS; 2023-07-02)
PROC: 10907ZC Drainage of Amniotic Fluid, Therapeutic from Products of Conception, Via Natural or Artificial Opening (ICD-10-PCS; 2023-07-02)
PROC: 3E033VJ Introduction of Other Hormone into Peripheral Vein, Percutaneous Approach (ICD-10-PCS; 2023-07-02)
DX: O99.52 Diseases of the respiratory system complicating childbirth (principal); Z37.0 Single live birth; O70.0 First degree perineal laceration during delivery; O99.344 Other mental disorders complicating childbirth; F32.A Depression, unspecified; F41.9 Anxiety disorder, unspecified; J45.20 Mild intermittent asthma, uncomplicated; Z3A.39 39 weeks gestation of pregnancy; Z79.899 Other long term (current) drug therapy
CPT/HCPCS: 85025; 86850; 86900; 86901